=== PATIENT | male | born 1945 | race Caucasian/White ===

== ENCOUNTER 2018-08-19 15:35 | Outpatient (REF) | payer MEDICARE, BC, SELFPAY ==
[2018-08-19 20:20] LABS: ALT 65 U/L (12-78); Anion Gap 10.8 mmol/L (3-11); BUN 26 mg/dL (7-18); CO2 25.2 mmol/L (21.0-32.0); Calcium 9.4 mg/dL (8.5-10.1); Chloride 105 mmol/L (98-107); Estimated GFR 59.18 (mL/min/1.73m2); Glucose 96 mg/dL (70-100); Potassium 4.3 mmol/L (3.5-5.1); Sodium 141 mmol/L (136-145); Uric Acid 6.1 mg/dL (3.5-7.2)
[2018-08-19 20:32] LABS: LDL CHOLESTEROL 73 mg/dL (<100)
== END 2018-08-19 15:55 ==
LOC: NCHCN 15:35
PROVIDERS: PCP Internal Medicine; Visit Provider Internal Medicine
DX: E78.5 Hyperlipidemia, unspecified (principal); I10 Essential (primary) hypertension; M10.9 Gout, unspecified
CPT/HCPCS: 80048; 83721; 84460; 84550

== ENCOUNTER 2020-07-13 22:32 | Outpatient (REF) | payer MEDICARE, BC, SELFPAY ==
[2020-07-13 16:00] LABS: ALT 43 U/L (16-63); AST 23 U/L (15-37); Albumin 3.8 g/dL (3.4-5.0); Alkaline Phosphatase 54 U/L (46-116); Anion Gap 8.8 mmol/L (3-11); BUN 21 mg/dL (7-18); Bilirubin, Total 0.4 mg/dL (0.2-1.0); CO2 27.2 mmol/L (21.0-32.0); Calcium 9.1 mg/dL (8.5-10.1); Chloride 105 mmol/L (98-107); Glucose 110 mg/dL (74-106); LDL CHOLESTEROL 74 mg/dL (<100); Potassium 4.2 mmol/L (3.5-5.1); Sodium 141 mmol/L (136-145); Total Protein 6.8 g/dL (6.4-8.2)
== END 2020-07-13 22:33 | disposition home or self-care (01) ==
LOC: NCHCN 22:32
PROVIDERS: PCP Internal Medicine; Visit Provider Internal Medicine
DX: K76.0 Fatty (change of) liver, not elsewhere classified (principal); N40.0 Benign prostatic hyperplasia without lower urinary tract symptoms; Z87.11 Personal history of peptic ulcer disease
CPT/HCPCS: 80053; 83721

== ENCOUNTER 2020-11-02 14:32 | Outpatient (REF) | payer MEDICARE, BC, SELFPAY ==
[2020-11-05 13:34] LABS: COVID-19 RT-PCR UVMMC Result Positive (Negative)
== END 2020-11-02 14:33 | disposition home or self-care (01) ==
LOC: NCHCN 14:32
PROVIDERS: PCP Internal Medicine; Visit Provider Internal Medicine
DX: Z20.822 Contact with and (suspected) exposure to COVID-19 (principal)
CPT/HCPCS: U0003

== ENCOUNTER 2021-02-15 19:15 | Outpatient (REF) | payer MEDICARE, BC, SELFPAY | END 2021-02-15 19:16 | disposition home or self-care (01) | LOC: NCHCN 19:15 | PROVIDERS: PCP Internal Medicine; Visit Provider Internal Medicine | DX: N39.0 Urinary tract infection, site not specified (principal) | CPT/HCPCS: 87086 ==

== ENCOUNTER 2021-02-22 13:03 | Outpatient (REF) | payer MEDICARE, BC, SELFPAY ==
[2021-02-22 19:49] LABS: HCT 45.7 % (40.0-50.0); HGB 14.7 g/dL (13.5-17.5); MCH 30.1 pg (27.0-33.0); MCHC 32.2 % (32.0-36.0); MCV 93.6 fL (80-95); MPV 9.7 fL (8.0-11.0); Platelet Count 309 10^3/uL (130-400); RBC 4.88 10^6/uL (4.36-5.78); RDW 13.2 % (11.8-14.1); RDW-SD 45.1 fL; WBC 5.55 10^3/uL (4.4-10.8)
[2021-02-22 19:51] LABS: Anion Gap 9.7 mmol/L (3-11); BUN 25 mg/dL (7-18); CO2 26.3 mmol/L (21.0-32.0); CREATININE 1.2 mg/dL (0.70-1.30); Calcium 9.5 mg/dL (8.5-10.1); Chloride 102 mmol/L (98-107); Estimated GFR 58.86 (mL/min/1.73m2); Glucose 96 mg/dL (74-106); Potassium 4.8 mmol/L (3.5-5.1); Sodium 138 mmol/L (136-145)
[2021-02-22 20:03] LABS: Prothrombin Time 10.1 sec (9.3-11.0)
[2021-02-26 09:08] LABS: PSA, Screening 42.4 ng/mL (0.0-6.5)
== END 2021-02-22 13:04 | disposition home or self-care (01) ==
LOC: NCHCN 13:03
PROVIDERS: PCP Internal Medicine; Visit Provider Internal Medicine
DX: N32.0 Bladder-neck obstruction (principal); N39.0 Urinary tract infection, site not specified; N40.0 Benign prostatic hyperplasia without lower urinary tract symptoms; Z12.5 Encounter for screening for malignant neoplasm of prostate
CPT/HCPCS: 80048; 84153; 85027; 85610; 85730

== ENCOUNTER 2021-05-30 02:00 | Outpatient (CLI) | payer MEDICARE, BC, SELFPAY ==
--- NOTE | 2021-05-30 09:30 | DI.NM_ITS ---
Exam(s) NM BONE SCAN WHOLE BODY GRP EXAM: NM BONE SCAN WHOLE BODY GRP CLINICAL HISTORY: CARCINOMA OF PROSTATE, C61. COMPARISON: CT CT ABDOMEN PELVIS W from 05/30/2021 TECHNIQUE: Whole body bone scan was performed utilizing injection of 25.5 millicuries of technetium 99 labeled methylene diphosphonate. Additional planar imaging was obtained of the thoracic and cervi rogers regions. There are multiple areas of increased uptake seen in the thoracic and lumbar spine. These are fairly nonspecific and may at least in part be due to degenerative changes of the thoracic and lumbar spine which are present on today's abdominal and pelvic CT. However the possibility of metastatic disease is raised in appropriate follow-up studies are requested. Additionally, on planar views, there is some question of increased uptake in the cervical spine, breen deann whole-body images do not confirm this impression. FINDINGS: Indeterminate findings as described above, particularly involving multiple thoracic and lumbar areas of increased uptake. The findings are somewhat suspicious for metastatic disease in a patient with a history of prostate carcinoma. Additional evaluation with thoracic and lumbar spine MRI with and wi thout contrast administration may be considered if clinically appropriate. IMPRESSION: DATA REPOSITORY:
[2021-05-30 10:06] LABS: CREATININE 1.2 mg/dL (0.70-1.30); Estimated GFR 58.71 (mL/min/1.73m2)
--- NOTE | 2021-05-30 12:45 | DI.CT_ITS ---
Exam(s) CT ABDOMEN PELVIS W EXAM: CT ABDOMEN PELVIS W CLINICAL HISTORY: CARCINOMA OF PROSTATE, C61 TECHNIQUE: COMPARISON: No exams were available for comparison FINDINGS: CT examination of the abdomen and pelvis was performed with bolus infusion of 100 cc of Omnipaque 350 . Biphasic imaging was performed. Images obtained through the lung bases are unremarkable except for a 5 millimeter in diameter noncalc ified rounded left lower lobe intrapulmonary nodule, follow-up chest CT suggested in 6 months.. The liver appears normal with no evidence of a focal mass. Spleen is unremarkable in appearance.. Gallbladder and bile ducts are unremarkable. Pancreas is unremarkable in appearance. Adrenals appear normal bilaterally. The right kidney is unremarkable in appearance with no evidence of a mass, hydronephrosis, or nephrol ithiasis. There is a 7 millimeter in diameter nonobstructing calculus of the left renal pelvis. No hydronephro sis. No renal mass period the prostate is mildly interval enlarged and has an irregular contour with an apparent TURP defect of the base of the bladder. Urinary bladder otherwise grossly unremarkable. . There is no evidence of abdominal or pelvic adenopathy. Abdominal aorta is of normal diameter and no abnormality is seen involving major visceral branches.. Appendix is normal. No evidence diverticulitis or bowel obstruction. No significant abdominal wall hernia seen. Impression: No evidence of acute intra-abdominal process. Nonobstructing 7 millimeter left renal pelvic calculus noted. 5 millimeter left lower lobe noncalcified pulmonary nodule noted, indeterminate, metastatic disease n ot excluded although this is most likely a benign nodule, six-month follow-up CT recommended. RADIATION DOSE DELIVERED: 1,723.72mGy.cm Total DLP 1,723.72mGy.cm Total DLP !Error CTDIvol DATA REPOSITORY: All CT scans at this facility are submitted to the National Radiology Data Registry (NRDR) Dose Index Registry (DIR) with the [employer] (ACR). RADIATION OPTIMIZATION: All CT scans at this facility use at least one of these dose optimization te chniques: automated exposure control; mA and/or kV adjustment per patient size (includes targeted exa ms where dose is matched to clinical indication); or iterative reconstruction.
== END 2021-05-30 02:20 ==
PROVIDERS: PCP Internal Medicine; Visit Provider Urology
DX: C61 Malignant neoplasm of prostate (principal); N20.0 Calculus of kidney; R91.1 Solitary pulmonary nodule; R93.7 Abnormal findings on diagnostic imaging of other parts of musculoskeletal system
CPT/HCPCS: 78306; 74177; 82565

== ENCOUNTER 2021-06-20 01:29 | Outpatient (CLI) | payer MEDICARE, BC, SELFPAY ==
[2021-06-20] MEDS: Normal Saline Flush 10 ML SYR IVP (08:07)
[2021-06-20] MEDS: Gadoterate meglumine 20 ML VIAL IVP (08:08)
--- NOTE | 2021-06-20 09:50 | DI.MRI_ITS ---
Exam(s) MR THORACIC SPINE WO/W EXAM: MR THORACIC SPINE WO/W CLINICAL HISTORY: MALIGNANT NEOPLASM OF PROSTATE, C61. TECHNIQUE: Multiplanar multisequence MRI was performed. COMPARISON: [facility] BONE SCAN WHOLE BODY GRP from 05/30/2021 FINDINGS: MR examination of the thoracic spine was performed according to the usual protocol with additional pr e and post contrast T1 fat sat imaging. There are areas of poorly marginated mixed high and low signal seen in T8 and T9 vertebral bodies on the left posteriorly, as well as a focal 7 millimeter in diameter mixed signal focus in T5 vertebral body on the left anteriorly. These areas each show enhancement on post contrast imaging and are susp icious for bony metastatic disease in patient with known prostatic carcinoma. No gross compromise of the spinal canal or fracture identified. Spinal cord shows normal signal throughout. There are mul ti level prominent vertebral endplates and discs with no focal compressive lesion of the spinal cord. Neural foramina appear fairly well maintained as visualized. IMPRESSION: Findings raising the possibility of T5, T8, and T9 vertebral body metastatic lesions. Follow-up MRI recommended in 6 months. DATA REPOSITORY:
--- NOTE | 2021-06-20 09:50 | DI.MRI_ITS ---
Exam(s) MR LUMBAR SPINE WO/W EXAM: MR LUMBAR SPINE WO/W CLINICAL HISTORY: MALIGNANT NEOPLASM OF PROSTATE, C61. TECHNIQUE: Multiplanar multisequence MRI was performed. COMPARISON: CT CT ABDOMEN PELVIS W from 05/30/2021 FINDINGS: MR examination of the lumbosacral spine was performed according to the usual protocol with additional pre and post contrast T1 fat sat imaging. There are Anna discal vertebral signal changes multiple levels and some small fatty rests or vertebra l hemangiomas are noted. No suspicious destructive or low signal lesion is identified in the lumbar region to suggest metastatic disease. There is multi level degenerative end plate and facet change throughout the lumbar region. No significant findings at T12-L1 or L1-2. At L2-3 there is moderate central canal spinal stenosis. At L3-4, there is moderate central canal spinal stenosis. At L4-5 there is moderate central canal spinal stenosis. No disc herniation identified in the lumbar region. There is slight symmetrical narrowing of neural foramina bilaterally throughout the lumbar region wit hout focal moderate or high-grade stenosis. IMPRESSION: No evidence of bony metastatic disease. Multilevel moderate central canal spinal stenosis. DATA REPOSITORY:
== END 2021-06-20 01:49 ==
PROVIDERS: PCP Internal Medicine; Visit Provider Urology
DX: C61 Malignant neoplasm of prostate (principal); M84.88 Other disorders of continuity of bone, other site; M48.061 Spinal stenosis, lumbar region without neurogenic claudication
CPT/HCPCS: 72158; 72157

== ENCOUNTER 2022-01-30 15:38 | Outpatient (REF) | payer MEDICARE, BC, SELFPAY ==
[2022-01-30 20:25] LABS: Anion Gap 8.8 mmol/L (3-11); BUN 40 mg/dL (7-18); CO2 26.2 mmol/L (21.0-32.0); CREATININE 1.2 mg/dL (0.70-1.30); Calcium 9.4 mg/dL (8.5-10.1); Chloride 101 mmol/L (98-107); Estimated GFR 62.29 (mL/min/1.73m2); Glucose 120 mg/dL (74-106); Potassium 3.7 mmol/L (3.5-5.1); Sodium 136 mmol/L (136-145)
== END 2022-01-30 15:39 | disposition home or self-care (01) ==
LOC: NCHCN 15:38
PROVIDERS: PCP Internal Medicine; Visit Provider Internal Medicine
DX: I10 Essential (primary) hypertension (principal)
CPT/HCPCS: 80048

== ENCOUNTER 2022-02-12 12:14 | Outpatient (CLI) | payer MEDICARE, BC, SELFPAY ==
[2022-02-12 11:06] LABS: Abs Immature Grans 0.06 10^3/uL (0.0-0.06); Absolute Basophil Count 0.02 10^3/uL (0.0-0.2); Absolute Eosinophil Count 0.05 10^3/uL (0.0-0.7); Absolute Lymphocyte Count 0.32 10^3/uL (1.2-3.4); Absolute Monocyte Count 0.89 10^3/uL (0.1-0.8); Absolute Neutrophil Count 8.17 10^3/uL (1.2-6.7); Basophils % 0.2; Eosinophils % 0.5; HCT 36.4 % (40.0-50.0); Immature Grans % 0.6; Lymphocytes % 3.4; MCH 31.2 pg (27.0-33.0); MCV 95 fL (80-95); MPV 9.1 fL (8.0-11.0); Monocytes % 9.4; Neutrophils % 85.9; Platelet Count 253 10^3/uL (130-400); RBC 3.85 10^6/uL (4.36-5.78); RDW 14.2 % (11.8-14.1); RDW-SD 49.4 fL; WBC 9.51 10^3/uL (4.4-10.8)
[2022-02-12 11:46] LABS: ALT 26 U/L (16-63); AST 17 U/L (15-37); Albumin 3.2 g/dL (3.4-5.0); Alkaline Phosphatase 52 U/L (46-116); Anion Gap 10.3 mmol/L (3-11); BUN 29 mg/dL (7-18); Bilirubin, Total 0.4 mg/dL (0.2-1.0); CO2 23.7 mmol/L (21.0-32.0); Calcium 8.9 mg/dL (8.5-10.1); Chloride 101 mmol/L (98-107); Estimated GFR 77.52 (mL/min/1.73m2); Glucose 117 mg/dL (74-106); Potassium 3.9 mmol/L (3.5-5.1); Sodium 135 mmol/L (136-145); Total Protein 7.1 g/dL (6.4-8.2)
--- OUTSIDE RECORDS SUMMARY | 2022-02-12 12:19 | XMS_ITS | Continuity of Care Document ---
:[address] [facility] Address [address] [place] [address] Care Team Providers Name Role Phone Primeau EMMYPedro Luis Primary Care Physician [phone] Encounter [facility] [id number] Date(s): 01/01/22 - 01/01/22 [facility] [address] [place] [address] Discharge Disposition: Home or Self Care Attending Physician: Sung Jones MD Admitting Physician: Sung Jones MD Referring Physician: Sung Jones MD Allergies, Adverse Reactions, Alerts No Known Medication Allergies Assessment and Plan Future AppointmentsDiagnostic Tests PendingPSA Ultrasensitive, S CORDERO 01/01/22 Results Laboratory List Name Date CBC w/ Diff 01/01/22 Comprehensive Metabolic Panel 01/01/22 Testosterone [facility] 01/01/22 .Manual Differential ([facility]) 01/01/22 Most recent to oldest [Reference Range]: 1 WBC [5.0-10.0 x10^3/mcL] 8.4 x10^3/mcL (01/01/22 8:45 AM) RBC [4.6-6.0 x10^6/mcL] 4.2 x10^6/mcL *LOW* (01/01/22 8:45 AM) Segs Man [40-75 %] 86 % *HI* (01/01/22 8:45 AM) Lymph Man [20-50 %] 10 % *LOW* (01/01/22 8:45 AM) Parker Man 2 % *NA* (01/01/22 8:45 AM) Eos Man 1 % *NA* (01/01/22 8:45 AM) BUN [7-18 mg/dL] 25 mg/dL *HI* (01/01/22 8:45 AM) Glucose Level [74-106 mg/dL] 109 mg/dL *HI* (01/01/22 8:45 AM) Potassium Level [3.5-5.1 mmol/L] 3.9 mmol/L (01/01/22 8:45 AM) MCV [80.0-103.0 fL] 96.2 fL (01/01/22 8:45 AM) RBC Morph Normal (01/01/22 8:45 AM) AST [15-37 unit/L] 16 unit/L (01/01/22 8:45 AM) ALT [16-63 unit/L] 27 unit/L (01/01/22 8:45 AM) MCHC [31.0-35.0 g/dL] 33.3 g/dL (01/01/22 8:45 AM) Sodium Level [136-145 mmol/L] 137 mmol/L (01/01/22 8:45 AM) Hct [41.0-51.0 %] 40.3 % *LOW* (01/01/22 8:45 AM) Calcium Level [8.5-10.1 mg/dL] 9.0 mg/dL (01/01/22 8:45 AM) Albumin Level [3.4-5.0 g/dL] 3.5 g/dL (01/01/22 8:45 AM) Protein Total [6.4-8.2 g/dL] 7.1 g/dL (01/01/22 8:45 AM) MCH [26.0-32.0 pg] 32.0 pg (01/01/22 8:45 AM) Bilirubin Total [0.2-1.0 mg/dL] 0.4 mg/dL (01/01/22 8:45 AM) Hgb [14.0-18.0 g/dL] 13.4 g/dL *LOW* (01/01/22 8:45 AM) Alk Phos [46-146 unit/L] 54 unit/L (01/01/22 8:45 AM) Band Man [0-5 %] 0 % (01/01/22 8:45 AM) Platelets [130-450 x10^3/mcL] 296 x10^3/mcL (01/01/22 8:45 AM) CO2 [21-32 mmol/L] 28 mmol/L (01/01/22 8:45 AM) eGFR Non-AA [>=60] 76 (01/01/22 8:45 AM) eGFR AA [>=60] 76 (01/01/22 8:45 AM) Chloride Level [98-107 mmol/L] 103 mmol/L (01/01/22 8:45 AM) RDW-CV [11.5-17.0 %] 13.1 % (01/01/22 8:45 AM) Creatinine Level [0.70-1.30 mg/dL] 1.02 mg/dL (01/01/22 8:45 AM) Testosterone [facility] [229-902 ng/dL] <7 ng/dL 1 *LOW* (01/01/22 8:45 AM) Baso Man [0-1 %] 1 % (01/01/22 8:45 AM) 1Result Comment: The results of this assay can be falsely elevated due to the consumption of Biotin. [place] [address] Social History Social History Type Response Sex Male Patient Care team information PersonnelName: Pedro Luis Hairston MD Address: Address: [facility] [address] [place], [place] [id number] [place] [address]
--- OUTSIDE RECORDS SUMMARY | 2022-02-12 12:19 | XMS_ITS | Continuity of Care Document ---
:1945 Author Organization [facility] Address [address] [place] [address] Care Team Providers Name Role Phone Primeau Pedro Luis GREGG Primary Care Physician [phone] Encounter [facility] [id number] Date(s): 12/04/21 - 12/04/[address] [address] Discharge Disposition: Home or Self Care Attending Physician: Sung Jones MD Admitting Physician: Sung Jones MD Referring Physician: Sung Jones MD Allergies, Adverse Reactions, Alerts No Known Medication Allergies Assessment and Plan Future AppointmentsDiagnostic Tests PendingPSA Ultrasensitive, S CORDERO 12/04/21 Results Laboratory List Name Date CBC w/ Diff 12/04/21 Comprehensive Metabolic Panel 12/04/21 Testosterone, Total and Free [facility] 12/04/21 Automated Diff 12/04/21 Most recent to oldest [Reference Range]: 1 WBC [5.0-10.0 x10^3/mcL] 8.2 x10^3/mcL (12/04/21 9:40 AM) RBC [4.6-6.0 x10^6/mcL] 4.4 x10^6/mcL *LOW* (12/04/21 9:40 AM) Neutro Auto [40.0-75.0 %] 76.5 % *HI* (12/04/21 9:40 AM) Lymph Auto [20.0-50.0 %] 13.6 % *LOW* (12/04/21 9:40 AM) Mcculloch Auto [2.0-15.0 %] 6.5 % (12/04/21 9:40 AM) Basophil Auto [0.0-1.0 %] 0.7 % (12/04/21 9:40 AM) BUN [7-18 mg/dL] 27 mg/dL *HI* (12/04/21 9:40 AM) Glucose Level [74-106 mg/dL] 107 mg/dL *HI* (12/04/21 9:40 AM) Potassium Level [3.5-5.1 mmol/L] 4.0 mmol/L (12/04/21 9:40 AM) MCV [80.0-103.0 fL] 95.0 fL (12/04/21:40 AM) AST [15-37 unit/L] 19 unit/L (12/04/21 9:40 AM) ALT [14-59 unit/L] 33 unit/L (12/04/21:40 AM) MCHC [31.0-35.0 g/dL] 33.7 g/dL (12/04/21:40 AM) Sodium Level [136-145 mmol/L] 138 mmol/L (12/04/21:40 AM) Hct [41.0-51.0 %] 41.9 % (12/04/21:40 AM) Calcium Level [8.5-10.1 mg/dL] 9.2 mg/dL (12/04/21:40 AM) Albumin Level [3.4-5.0 g/dL] 3.9 g/dL (12/04/21:40 AM) Protein Total [6.4-8.2 g/dL] 7.5 g/dL (12/04/21 9:40 AM) MCH [26.0-32.0 pg] 32.0 pg (12/04/21 9:40 AM) Neutro Absolute 6.2 x10^3/mcL *NA* (12/04/21 9:40 AM) Bilirubin Total [0.2-1.0 mg/dL] 0.5 mg/dL (12/04/21 9:40 AM) Hgb [14.0-18.0 g/dL] 14.1 g/dL (12/04/21 9:40 AM) Alk Phos [46-146 unit/L] 56 unit/L (12/04/21 9:40 AM) Platelets [130-450 x10^3/mcL] 263 x10^3/mcL (12/04/21 9:40 AM) CO2 [21-32 mmol/L] 27 mmol/L (12/04/21 9:40 AM) eGFR Non-AA [>=60] 80 (12/04/21 9:40 AM) eGFR AA [>=60] 80 (12/04/21 9:40 AM) Chloride Level [98-107 mmol/L] 103 mmol/L (12/04/21 9:40 AM) RDW-CV [11.5-17.0 %] 13.2 % (12/04/21 9:40 AM) Imm Gran Auto [0.0-0.9 %] 1.2 % *HI* (12/04/21 9:40 AM) Creatinine Level [0.70-1.30 mg/dL] 0.97 mg/dL (12/04/21 9:40 AM) Testosterone [facility] [229-902 ng/dL] <7 ng/dL 1 *LOW* (12/04/21 9:40 AM) Sex Hormone Bnd Glob [facility] [17.3-71.5 nmol/L] 57.1 nmol/ L 2 *NA* (12/04/21 9:40 AM) Free Testosterone [facility] [2.9-10.1 ng/dL] <0.1 ng/dL 3 *LOW* (12/04/21 9:40 AM) Anion Gap [8-16 mmol/L] 8 mmol/L (12/04/21 9:40 AM) Eos, Auto [1.0-6.0 %] 1.5 % (12/04/21 9:40 AM) 1Result Comment: The results of this assay can be falsley elevated due to the consumption of Biotin.2Result Comment: The results of this assay can be falsely lowered due to the consumption of Biotin.3Result Comment: This test is not recommended in patients with plasma protein abnormalities. Test performed or referred by The [address] [address] Social History Social History Type Response Sex Male Patient Care team information PersonnelName: Pedro Luis Hairston MD Address: Address: [address]
[2022-02-18 12:32] LABS: Testosterone, Total <7.0 ng/dL (240-950)
== END 2022-02-12 12:15 | disposition home or self-care (01) ==
LOC: LBO 12:16
PROVIDERS: PCP Internal Medicine; Visit Provider Internal Medicine
DX: C61 Malignant neoplasm of prostate (principal); C77.5 Secondary and unspecified malignant neoplasm of intrapelvic lymph nodes
CPT/HCPCS: 36415; 80053; 84153; 84403; 85025

== ENCOUNTER 2022-03-22 20:23 | Outpatient (REF) | payer MEDICARE, BC, SELFPAY ==
[2022-03-22 20:06] LABS: Hemoglobin A1C 5.7 % (<5.7)
[2022-03-22 20:30] LABS: TSH 1.15 uIU/mL (0.36-3.74); Vitamin B12 394 pg/mL (193-986)
[2022-03-26 12:57] LABS: Albumin 57.5 % (55.8-66.1); Albumin g/dL 3.9 g/dL (3.6-5.2); Total Protein 6.8 g/dL (6.3-8.2)
== END 2022-03-22 20:24 | disposition home or self-care (01) ==
LOC: NCHCN 20:23
PROVIDERS: PCP Internal Medicine; Visit Provider Internal Medicine
DX: G60.9 Hereditary and idiopathic neuropathy, unspecified (principal); R79.89 Other specified abnormal findings of blood chemistry
CPT/HCPCS: 82607; 83036; 84165; 84443

== ENCOUNTER 2022-03-28 11:58 | Outpatient (REF) | payer MEDICARE, BC, SELFPAY | END 2022-03-28 11:59 | disposition home or self-care (01) | LOC: NCHCN 11:58 | PROVIDERS: PCP Internal Medicine; Visit Provider Nurse Practitioner Family | DX: R30.0 Dysuria (principal) | CPT/HCPCS: 87077; 87086; 87186 ==

== ENCOUNTER → 2022-11-05 12:23 | Outpatient (BNVA) | payer MEDICARE, BC, SELFPAY | PROVIDERS: PCP Internal Medicine; Referring Provider Internal Medicine; Visit Provider Psychiatry & Neurology Neurology | DX: R26.89 Other abnormalities of gait and mobility (principal); R29.6 Repeated falls | CPT/HCPCS: 99205 ==

== ENCOUNTER → 2022-12-03 00:07 | Outpatient (CLI) | payer MEDICARE, BC, SELFPAY ==
--- NOTE | 2022-12-03 07:15 | DI.MRI_ITS ---
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 TECHNIQUE: Multiplanar multisequence MRI of the Lumbar spine was performed. COMPARISON: NM NM BONE SCAN WHOLE BODY GRP from 05/30/2021 MR MR LUMBAR SPINE WO/W from 06/20/2021 FINDINGS: Bones: The last intervertebral disc space is designated the L5/S1 level for the numbering purpose of this ex amination. The vertebral body heights are well maintained. Alignment: Degenerative scoliosis. Marrow: Degenerative signal changes in the endplates. Findings consistent with a hemangioma in T12. No change in tiny high signal lesion in the T10 vertebral body. Cord: The conus tip ends at the T12 level. It is of normal size and signal intensity. T12-L1: No focal disc herniation is present. No central spinal canal stenosis.No neural foraminal st enosis. L1-2:Loss of disc height and endplate osteophytes eccentric toward the left causing severe left neura l foraminal narrowing. [id number] central canal stenosis. No focal disc herniation is present . L2-3: Arm marked loss of disc height and broad-based endplate osteophytes. Severe left neural forami nal narrowing. No no focal disc herniation is present. No central spinal canal stenosis.No neural foraminal stenosis. L3-4: loss of disc height and endplate osteophytes eccentric toward the right. Superimposed right p aracentral disc protrusion. Facet degenerative changes. Severe central canal stenosis. Severe righ t and moderate left neural foraminal narrowing. L4-5:Broad-based disc bulging eccentric toward the right. Facet degenerative changes and ligamentous hypertrophy. Moderate central canal stenosis. Mild to moderate right neural foraminal narrowing. No focal disc herniation is present. No central spinal canal stenosis. L5-S1: Loss of disc height. Small endplate osteophytes. Mild facet degenerative changes. Moderate to severe bilateral neural foraminal narrowing. No focal disc herniation is present. No central spi nal canal stenosis. The visualized SI joints and sacrum are well maintained. Soft tissues: The paraspinal soft tissues are unremarkable. IMPRESSION: Severe central canal stenosis secondary to a combination degenerative changes and right paracentral d isc protrusion. Moderate central canal stenosis at L4-5. Multilevel bilateral neural foraminal narrowing secondary to combination of degenerative disc changes and facet degenerative changes. DATA REPOSITORY:
--- NOTE | 2022-12-03 07:15 | DI.MRI_ITS ---
Exam(s) MR CERVICAL SPINE WO EXAM: MR CERVICAL SPINE WO CLINICAL HISTORY: ?myelopathy,balance problem,post column ataxia,r26.89,g11.8 TECHNIQUE: Multiplanar multisequence MRI of the cervical spine was performed without intravenous con trast. COMPARISON: [facility] BONE SCAN WHOLE BODY GRP from 05/30/2021 FINDINGS: BONES: Vertebral body heights are maintained. Alignment is normal. Marrow signal shows degenerative s ignal changes in the endplates. No suspicious lesions are identified.. CERVICAL CORD: Craniovertebral junction is unremarkable. The cervical cord is normal size and signal intensity. SOFT TISSUES: Unremarkable. C1-2: Degenerative changes atlantoaxial joint. C2-3: No disc herniation or bulge is identified. No evidence of neural foraminal narrowing. No signi ficant central canal stenosis. C3-4: No disc herniation or bulge is identified. No evidence of neural foraminal narrowing. No signif icant central canal stenosis. C4-5: Minimal disc bulging. Facet degenerative changes greater on the right causes neural foraminal encroachment. No leftneural foraminal narrowing. No significant central canal stenosis. C5-6: Moderate to severe loss of disc height. Broad-based disc osteophytes. Facet degenerative matos ges.Bilateral neural foraminal narrowing. Mild central canal stenosis. C6-7: Moderate to severe loss of disc height. Broad-based disc osteophytes. Facet degenerative maots ges. Mild bilateral neural foraminal narrowing. [id number] central canal stenosis. C7-T1: Moderate to severe loss of disc height. Small endplate osteophytes. Right neural foraminal n arrowing. No significant central canal stenosis. T1-2: Normal disc height. No significant disc bulging. Facet degenerative changes cause bilateral n eural foraminal encroachment. No significant central canal stenosis. IMPRESSION: Multilevel degenerative changes. Findings greatest at C6-7 where there is central canal stenosis and . Multilevel bilateral neural foraminal narrowing. DATA REPOSITORY:
== END ==
PROVIDERS: PCP Internal Medicine; Visit Provider Psychiatry & Neurology Neurology
DX: M48.061 Spinal stenosis, lumbar region without neurogenic claudication (principal); M99.63 Osseous and subluxation stenosis of intervertebral foramina of lumbar region; M99.61 Osseous and subluxation stenosis of intervertebral foramina of cervical region
CPT/HCPCS: 72141; 72148

== ENCOUNTER → 2023-01-07 09:40 | Outpatient (BNVA) | payer MEDICARE, BC, SELFPAY | PROVIDERS: PCP Internal Medicine; Referring Provider Internal Medicine; Visit Provider Psychiatry & Neurology Neurology | DX: G11.8 Other hereditary ataxias (principal); M48.061 Spinal stenosis, lumbar region without neurogenic claudication; I10 Essential (primary) hypertension | CPT/HCPCS: 99214 ==

== ENCOUNTER 2023-01-21 15:24 | Outpatient (CLI) | payer MEDICARE, BC, SELFPAY ==
[2023-01-24 18:57] LABS: PSA, Ultrasensitive <0.01 ng/mL (<= 6.5)
[2023-01-26 16:51] LABS: Testosterone, Total <7.0 ng/dL (240-950)
== END 2023-01-21 15:25 | disposition home or self-care (01) ==
LOC: LBO 15:24
PROVIDERS: PCP Internal Medicine; Visit Provider Nurse Practitioner Family
DX: C61 Malignant neoplasm of prostate (principal); C77.5 Secondary and unspecified malignant neoplasm of intrapelvic lymph nodes
CPT/HCPCS: 36415; 84153; 84403

== ENCOUNTER → 2023-02-28 01:39 | Outpatient (CLI) | payer MEDICARE, BC, SELFPAY ==
--- NOTE | 2023-02-28 | DI.MRI_ITS ---
Exam(s) MR THORACIC SPINE WO EXAM: MR THORACIC SPINE WO CLINICAL HISTORY: LUMBAR DISC DISEASE, LUMBAR/THORACIC STENOSIS, NUMBNESS/TINGLING BOTH FEET TECHNIQUE: Multiplanar multisequence MRI of the thoracic spine was performed without intravenous con trast. COMPARISON: MR MR THORACIC SPINE WO/W from 06/20/2021 FINDINGS: OSSEOUS: There are no acute nor chronic appearing thoracic vertebral fractures. There is a small brady gn intraosseous hemangioma in the T12 vertebral body. The anterior aspect of T5 vertebral body an th ere is a focus of signal abnormality slightly left of center which does not exhibit signal characteri stics typical of hemangioma. There is another larger bone lesion in the posterior none left-side of T9 vertebral body which also does not exhibit signal characteristics typical of a hemangioma.. Also another smaller focus of signal abnormality in the anterior aspect of T10 vertebral body which is pro bably a small hemangioma. THORACIC SPINAL CORD: There is no abnormal signal in the cervical spinal cord and no evidence of foca l cord atrophy nor focal cord swelling. There is no evidence of syringomyelia nor significant spinal cord dysraphism. There is no evidence of mass at the conus medullaris. The position of the conus me dullaris is at T12-L1 level. There is mild reversal of the normal curvature in the lower thoracic spine probably related to chroni c muscle spasm. SIGNIFICANT INDIVIDUAL LEVEL FINDINGS: T6-T7: Small right paracentral disc protrusion which slightly indents the thecal sac but not the spin al cord. There is no significant central canal stenosis at this level. No foraminal stenosis. Face ts unremarkable. T7-T8: Chronic disc space narrowing. Modic type 2 sub endplate marrow fatty changes are evident at t his level. There is a central posterior disc herniation at this level which extends posteriorly 3.5 mm and is approximately 9 mm wide. This significantly indents the anterior thecal sac and contacts b ut does not significantly indent the anterior aspect of the spinal cord at this level. There is no a bnormal signal in the cord at this level. Central osseous canal dimensions are the decreased. There is no significant foraminal stenosis at this level. Facet joints unremarkable. T8-T9: Chronic disc space narrowing. Mild Modic type 2 sub endplate marrow fatty changes. Small maricarmen tral subligamentous disc bulge. Central canal dimensions are normal. No significant foraminal steno sis. No facet arthropathy. T9-T10: Moderate disc space narrowing. Posterior annular bulging which slightly indents the thecal s ac but not the spinal cord. Central canal dimensions are lower normal. No significant foraminal vicky nosis on the left side. Mild foraminal stenosis on the right side at this level due to slightly asym metric disc height loss. T10-T11: Mild disc space narrowing. Very mild anterolisthesis of T10 upon T11 due to facet joint deg enerative changes. Asymmetric annular bulging on the left side posterolateral left and extending int o the floor of the exiting left neural foramen, extending posteriorly 2-3 millimeters. There is sign ificant central spinal canal stenosis at this level. AP canal measurement is 7 mm. Compounded by de generative change in the facet joints. This indents the thecal sac posteriorly as does the annular b ulging anteriorly. There is mild impingement upon the spinal cord at this level. There is also a sm all hyperintense focus posterolateral right this level which appears to be a probable small degenerat david synovial cyst off the right facet joint, this best seen on the sagittal T2 sequences. There is m ild foraminal stenosis on the left side at this level. No foraminal stenosis on the right side. T11-T12: Unremarkable. No disc herniation. No central canal stenosis. No significant foraminal vicky nosis. T12-L1: Mild annular bulging but no prominent disc herniation or central canal stenosis. No foramina l stenosis. PARASPINAL TISSUES: No significant masses nor fluid collections evident. IMPRESSION: 1. Multilevel degenerative disc disease with the most significant findings detailed above. The most significant spinal canal stenosis is at the T10-T11 level (see above). 2. There is no abnormal signal in the thoracic spinal cord. No focal cord swelling nor focal cord ed zonia. No evidence of spinal cord dysraphism and no syringomyelia evident. 3. Multiple bone lesions seen in the vertebral bodies as described above, some of which are typical h emangiomas but others which do not exhibit signal characteristics typical of benign intraosseous tania ngioma. This is most evident in the posterior left side of the T9 vertebral body. Recommend further imaging with CT scan through these regions to determine if there is a typical chordoroy trabecular p attern of intraosseous hemangioma at these levels, with special attention to T9 and T5 vertebral bodi es. DATA REPOSITORY:
== END ==
PROVIDERS: PCP Internal Medicine; Visit Provider Physician Assistant Medical
DX: M51.24 Other intervertebral disc displacement, thoracic region (principal)
CPT/HCPCS: 72146

== ENCOUNTER 2023-10-30 11:22 | Outpatient (CLI) | payer MEDICARE, BC, SELFPAY ==
[2023-10-30 11:30] VITALS: BP 164/85; PULSE 64; RESP 20; TEMP 36.6; O2SAT 95
[2023-10-30 11:50] VITALS: PULSE 69; O2SAT 97
[2023-10-30 12:00] VITALS: PULSE 65; RESP 15; O2SAT 97
[2023-10-30 12:07] VITALS: BP 165/100; PULSE 65; PULSE 67; RESP 22; O2SAT 95
[2023-10-30 12:10] VITALS: BP 148/94; PULSE 72
--- NOTE | 2023-10-30 12:11 | DI.RAD_ITS ---
Exam(s) XR PAIN CLINIC LUMBAR SP 2V EXAM: XR PAIN CLINIC LUMBAR SP 2V CLINICAL HISTORY: DX: Lumbar Spondylosis. TECHNIQUE: Fluoroscopy was provided for the referring physician for guidance with performing pain cl inic injection procedure. COMPARISON: No exams were available for comparison FINDINGS: Please see procedure note for details. Fluoro time: 75.4 seconds RADIATION DOSE DELIVERED: kathie Katz=29.32 mGy
[2023-10-30] MEDS: Omnipaque 240 MG/ML 50 ML BTL IJ (12:13)
[2023-10-30] MEDS: Bupivacaine 0.5% Pres-Free 10 ML VIAL IJ (12:14)
[2023-10-30] MEDS: Nerve Block Tray 1 EACH MC (12:14)
--- NOTE | 2023-10-31 10:56 | PDOC.PAIN ---
Date of service: 10/30/23 Time of Service: 12:00 [facility] Procedure Note Procedure Note Procedure Note: PROCEDURE NOTE Bilateral Lumbar Medial Branch Blocks #1 Date of Service: October 30, 2023 Patient: Keron Busch Provider: Micah Spears DO, MPH Keronkatherine Busch has been [facility] for lumbar medial branch blocks. 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 No significant changes. Keron? was interviewed and the medical records were reviewed. There were no medical, pharmacologic, radiographic or other structural contraindications to attempting fluoroscopically guided local anesthetic lumbar medial branch blocks. Risks and potential side effects were discussed. I also discussed the potential benefit(s) of the procedure with Keron, and voiced concerns were addressed. After Keron was completely informed about the procedure, the printed consent form was signed. A standard time-out procedure was performed. Keron was placed in the prone position on the fluoroscopy table. Automated blood pressure cuff and pulse oximeter were applied. The skin entry points for approaching the anatomic target points of the segmental medial branches of bilateral L3,L4,L5 were identified with fluoroscopy and marked. The skin at the target site area was thoroughly prepared with Chlorhexadine. The skin was then draped. Next, a 25 gauge 3.5 spinal needle was placed under fluoroscopic guidance down on to the target point (the articular pillar) for each respective segmental medial branch. Position was confirmed in A/P and lateral views. Aspiration revealed no blood or clear fluid. Next, 0.25ml of omnipaque 240 was injected at each level. No contrast following a vascular or neural pattern was visualized under continuous fluoroscopy. Next, 0.25 ml of preservative-free 0.5% bupivicaine was injected at each level. There was no unusual discomfort expressed by Keron. The needles were withdrawn without difficulty. (49 mls of Omnipaque was wasted) Keron was observed and was without hemodynamic, neurologic, or allergic reactions.? Fluoroscopic images were digitally archived. Provacative testing using the Modified Austin's facet loading test- Left side Right Side Directly before the block VAS (0-10) = 6/10 VAS (0-10) = 6/10 Five minutes after the block VAS (0-10) = 2/10 VAS (0-10) = 2/10 Percentage relief obtained with this diagnostic block 80% 80% Any improved physical functioning directly after the blocks? Able to move his back in all directions with minimal pain. Follow up plans and appointments were discussed with Keron. Keron was instructed to keep careful note of how the usual pain was modified by these injections. Specifically, to keep a pain diary for the next 4 hours using a numeric pain scale of 0-10 and report these results. Post procedure instruction was given as documented in the nursing documentation and having met discharge criteria, the patient was [facility]. Based on the medial branches blocked today, if they patient has adequate relief and we are able to proceed to radiofrequency ablation, the treatment should result in the denervation of the bilateral L4-L5 and L5-S1 facet joints. We would expect to denervate a total of 4 facets during the radiofrequency ablation. COMMENTS: No apparent complications. Post-procedure pain: VAS= 2/10 Keron will call back with 0-4 hour post-procedure pain scores. I personally performed the entire procedure. MICAH SPEARS DO, MPH ABPM&R-subspecialty board certification in Pain Medicine [facility]
== END 2023-10-30 11:23 | disposition home or self-care (01) ==
LOC: PC 11:22
PROVIDERS: PCP Internal Medicine; Visit Provider Preventive Medicine Occupational Medicine
DX: M47.816 Spondylosis without myelopathy or radiculopathy, lumbar region (principal); M54.50 Low back pain, unspecified
CPT/HCPCS: 64493; 64494; 72100; J0665; Q9967

== ENCOUNTER 2023-11-14 10:37 | Outpatient (CLI) | payer MEDICARE, BC, SELFPAY ==
[2023-11-14] VITALS (10 sets, daily range): BP systolic 147–192; BP diastolic 66–101; PULSE 59–64; RESP 15–19; TEMP 36.9; O2SAT 96–98
--- NOTE | 2023-11-14 11:55 | DI.RAD_ITS ---
Exam(s) XR PAIN CLINIC LUMBAR SP 2V EXAM: XR PAIN CLINIC LUMBAR SP 2V CLINICAL HISTORY: DX: Lumbar spondylosis. TECHNIQUE: Fluoroscopy was provided for the referring physician for guidance with performing pain cl inic injection procedure. COMPARISON: No exams were available for comparison FINDINGS: Please see procedure note for details. Fluoro time: 57.9 seconds RADIATION DOSE DELIVERED: Sterlingr=22.2 mGy
[2023-11-14] MEDS: Nerve Block Tray 1 EACH MC (12:00)
[2023-11-14] MEDS: Bupivacaine 0.5% Pres-Free 10 ML VIAL IJ (12:01)
[2023-11-14] MEDS: Omnipaque 240 MG/ML 50 ML BTL IJ (12:01)
--- NOTE | 2023-11-14 12:45 | PDOC.PAIN ---
Date of service: 11/14/23 Time of Service: 12:45 Pain Managment Procedure Note Procedure Note Procedure Note: PROCEDURE NOTE Bilateral Lumbar Medial Branch Blocks Date of Service: November 14, 2023 Patient: Keron Busch Provider: Corbin pSears DO, MPH Keron Neha Busch has been referred to the [facility] for lumbar medial branch blocks. 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 Keron? was interviewed and the medical records were reviewed. There were no medical, pharmacologic, radiographic or other structural contraindications to attempting fluoroscopically guided local anesthetic lumbar medial branch blocks. Risks and potential side effects were discussed. I also discussed the potential benefit(s) of the procedure with Keron, and voiced concerns were addressed. After Keron was completely informed about the procedure, the printed consent form was signed. A standard time-out procedure was performed. Keron was placed in the prone position on the fluoroscopy table. Automated blood pressure cuff and pulse oximeter were applied. The skin entry points for approaching the anatomic target points of the segmental medial branches of bilateral L3,L4,L5 were identified with fluoroscopy and marked. The skin at the target site area was thoroughly prepared with Chlorhexadine. The skin was then draped. Next, a 25 gauge 3.5 spinal needle was placed under fluoroscopic guidance down on to the target point (the articular pillar) for each respective segmental medial branch. Position was confirmed in A/P and lateral views. Aspiration revealed no blood or clear fluid. Next, 0.25ml of omnipaque 240 was injected at each level. No contrast following a vascular or neural pattern was visualized under continuous fluoroscopy. Next, 0.25 ml of preservative-free 0.5% bupivicaine was injected at each level. There was no unusual discomfort expressed by Keron. The needles were withdrawn without difficulty. (49 mls of Omnipaque was wasted) Keron was observed and was without hemodynamic, neurologic, or allergic reactions.? Fluoroscopic images were digitally archived. Provacative testing using the Modified Austin's facet loading test- Left side Right Side Directly before the block VAS (0-10) = 6/10 VAS (0-10) = 6/10 Five minutes after the block VAS (0-10) = 0/10 VAS (0-10) = 0/10 Percentage relief obtained with this diagnostic block 100% 100% Any improved physical functioning directly after the blocks? Able to extend, flex and twist his back without pain. Follow up plans and appointments were discussed with Keron. Keron was instructed to keep careful note of how the usual pain was modified by these injections. Specifically, to keep a pain diary for the next 4 hours using a numeric pain scale of 0-10 and report these results. Post procedure instruction was given as documented in the nursing documentation and having met discharge criteria, the patient was [facility] from the [facility]. Based on the medial branches blocked today, if they patient has adequate relief and we are able to proceed to radiofrequency ablation, the treatment should result in the denervation of the bilateral L4-L5 and L5-S1 facet joints. We would expect to denervate a total of 4 facets during the radiofrequency ablation. COMMENTS: No apparent complications. Post-procedure pain: VAS= 0/10 Keron will call back with 0-4 hour post-procedure pain scores. I personally performed the entire procedure. CORBIN SPEARS DO, MPH ABPM&R-subspecialty board certification in Pain Medicine [facility]
== END 2023-11-14 10:38 | disposition home or self-care (01) ==
LOC: PC 10:37
PROVIDERS: PCP Internal Medicine; Visit Provider Preventive Medicine Occupational Medicine
DX: M54.50 Low back pain, unspecified (principal); M47.816 Spondylosis without myelopathy or radiculopathy, lumbar region
CPT/HCPCS: 64493; 64494; 72100; J0665; Q9967

== ENCOUNTER 2023-12-24 12:20 | Outpatient (CLI) | payer MEDICARE, BC, SELFPAY ==
[2023-12-24] VITALS (9 sets, daily range): BP systolic 135–180; BP diastolic 77–98; PULSE 56–62; RESP 14–18; TEMP 36.5; O2SAT 90–100
[2023-12-24] MEDS: Midazolam 2 MG/2 ML VIAL IVP (13:25)
[2023-12-24] MEDS: fentaNYL 100 MCG/2 ML VIAL IVP (13:25)
--- NOTE | 2023-12-24 13:56 | DI.RAD_ITS ---
Exam(s) XR PAIN CLINIC LUMBAR SP 2V EXAM: XR PAIN CLINIC LUMBAR SP 2V CLINICAL HISTORY: DX: Lumbar Spondylosis TECHNIQUE: 2D and realtime digital imaging was performed. CONTRAST MATERIAL: Refer to procedure report. COMPARISON: No exams were available for comparison FINDINGS: Fluoroscopy was provided for Dr. Spears during the performance of a bilateral lumbar radiofrequency ab lation. Please refer to the procedure report for complete details. Ka,r=26.6 mGy IMPRESSION: RADIATION DOSE DELIVERED: 0.0 0.0 0
--- NOTE | 2023-12-24 13:58 | PDOC.PAIN ---
Date of service: 12/24/23 Time of Service: 13:58 Pain Managment Procedure Note Procedure Note Procedure Note: PROCEDURE NOTE BILATERAL LUMBAR RADIOFREQUENCY ABLATION Date of Service: December 24, 2023 Patient:? Keron Busch? Provider:? Corbin Spears DO, MPH Keron Busch has been [facility] to the [facility] for Bilateral Lumbar Radiofrequency Ablation with the AvXcedexs Machine.? Pre Operative Diagnosis: Lumbosacral Spondylosis without Myelopathy ICD-10 M47.816 Post Operative Diagnosis: Same Pre procedure pain; VAS= 7/10 Comments: He had excellent relief with the LMBBs x 2. PROCEDURE: Radiofrequency Ablation of medial branches - bilateral L3, L4, L5 and lateral branches of bilateral S1. Keron?was interviewed and the medical record was reviewed.? There were no medical, pharmacologic, radiographic or other structural contraindications to attempting fluoroscopically guided BILATERAL Lumbar Radiofrequency Ablation.?Risks and expected side effects as well as potential benefit of the procedure were reviewed with Keron, and the patient's voiced concerns were addressed.? The printed consent form was signed.? Standard time-out procedure was performed. Keron was brought into the fluoroscopy suite and positioned into the prone position on the fluoroscopy table and allowed to adjust to a position of comfort. A grounding pad was placed on the left abdomen. The sterile field was prepared using chlorhexidine preparation of the skin and sterile draping. Local anesthesia superficial and deep was provided by local infiltration of 2% lidocaine. A 17g 100 mm radiofrequency introducer needle was placed to the planned anatomic targets guided with intermittent fluoroscopy with a perpendicular approach to terminally place at the junction of the superior articular process and the transverse process of the bilateral L4, L5, the base of the sacral ala on the bilateral for the L5 medial branch nerve and the area between base of the sacral ala to the S1 foramen bilaterally. The stylets were removed and radiofrequency probes with a 4mm active tip were then inserted. Needle tip position of the probes was verified in the AP, oblique, and lateral views. At each site, the medial branch nerve was stimulated at 2 Hz to a maximum 1-2 volts determined to finalize safe needle and electrode placement. The patient was awake and responsive during this portion of the procedure. Each target was anesthetized with 1-2 mL of 2 % Lidocaine for anesthesia for lesioning and then each target was lesioned at 80 degrees Celsius for 2 minutes and 30 seconds. Tissue impedances were noted to be between 250 and 500 Ohms. I then injected 1/4 cc of Depomedrol (40 mg/cc) followed by 1 cc of 0.5% at each segmental sensory nerve. There was no unusual discomfort expressed by Keron. The needles were withdrawn without difficulty and bandages placed over the needle placement sites, the patient was observed and was without hemodynamic, neurologic, or allergic reactions. Fluoroscopic images were digitally archived. POST PROCEDURE EVALUATION: IMPRESSION: 1. Summary of procedure. Medication given is documented in the MAR. 2. Follow up plan: Keron to contact [facility] as needed.?This procedure may be repeated if the patient achieves at least 50% improvement in pain/function for at least 6 months. 3. Estimated Blood Loss: <5 mls 4. Fluoroscopy time: Documented in the EMR. Follow up plans and appointments were discussed with the Keron. Post procedure instruction was given as documented in nursing documentation and having met discharge criteria, Keron was discharged from the [facility]. COMMENTS: No apparent complications. Post-procedure pain: VAS= 1/10. I personally completed the entire procedure. CORBIN SPEARS DO, MPH ABPM&R - Subspecialty board certification in Pain Medicine [facility] [facility]
[2023-12-24] MEDS: Bupivacaine 0.5% Pres-Free 10 ML VIAL IJ (14:14)
[2023-12-24] MEDS: methylPREDNISolone ACETATE 40 MG/ML VIAL IJ (14:14)
[2023-12-24] MEDS: Lidocaine 2% Multi-Dose 20 ML VIAL IJ (14:14)
[2023-12-24] MEDS: Nerve Block Tray 1 EACH MC (14:15)
== END 2023-12-24 12:21 | disposition home or self-care (01) ==
LOC: PC 12:20
PROVIDERS: PCP Internal Medicine; Visit Provider Preventive Medicine Occupational Medicine
DX: M54.50 Low back pain, unspecified (principal); M47.816 Spondylosis without myelopathy or radiculopathy, lumbar region
CPT/HCPCS: 64635; 64636; 72100; J0665; J1010; J2003; J2250; J3010

== ENCOUNTER 2024-04-14 14:41 | Outpatient (CLI) | payer MEDICARE, BC, SELFPAY ==
--- NOTE | 2024-04-14 06:00 | DI.RAD_ITS ---
Exam(s) XR PAIN CLINIC LUMBAR SP 2V EXAM: XR PAIN CLINIC LUMBAR SP 2V CLINICAL HISTORY: Dx: Lumbar Radiculopathy. TECHNIQUE: Fluoroscopy was provided for the referring physician for guidance with performing pain cl inic injection procedure. COMPARISON: No exams were available for comparison FINDINGS: Please see procedure note for details. Fluoro time: 21.9 seconds RADIATION DOSE DELIVERED: Ka,r=9.95 mGy
[2024-04-14 14:47] VITALS: BP 151/82; PULSE 72; RESP 20; TEMP 36.7; O2SAT 97
[2024-04-14 15:20] VITALS: PULSE 67; RESP 20; O2SAT 97
[2024-04-14 15:21] VITALS: BP 183/95; PULSE 66; RESP 19; O2SAT 98
[2024-04-14 15:23] VITALS: BP 175/83; PULSE 67; RESP 15; O2SAT 98
[2024-04-14 15:29] VITALS: BP 149/83; PULSE 65; RESP 15; O2SAT 96
[2024-04-14] MEDS: methylPREDNISolone ACETATE 80 MG/ML VIAL IJ (15:35)
[2024-04-14] MEDS: Omnipaque 240 MG/ML 50 ML BTL IJ (15:35)
[2024-04-14] MEDS: Epidural Tray 1 EACH MC (15:35)
--- NOTE | 2024-04-15 16:20 | PDOC.PAIN ---
Date of service: 04/14/24 Time of Service: 15:25 Pain Managment Procedure Note Procedure Note Procedure Note: PROCEDURE NOTE LUMBAR EPIDURAL STEROID INJECTION Date of Service: April 14, 2024 Patient:Keron Lerner? Provider: Corbin Spears DO, MPH Keron Busch has been referred to the [facility] for a lumbar epidural steroid injection. Pre-operative diagnosis: Lumbosacral Radiculopathy ICD-10 M54.16 Post-operative diagnosis: Same Pre-Procedure Pain: VAS= 7 /10 Comments: I previously evaluated him in the clinic. Keron was interviewed and the medical record was reviewed.? There were no medical, pharmacologic, radiographic or other structural contraindications to attempting fluoroscopically guided Lumbar epidural steroid injection.? Risks, potential side effects, indications, and potential benefits of the procedure were reviewed with Keron.? Questions and concerns were addressed.? After it was clear that Keron was fully informed about the procedure, the printed consent form was signed by the patient and myself.? Keron was placed in the prone position on the fluoroscopy table and automated blood pressure cuff and pulse oximeter applied. The skin entry point for entering/approaching the epidural space for the lumbar epidural steroid injection was marked. Following thorough chlorhexadine preparation of the skin and draping and 1% lidocaine infiltration of the skin entry point and subcutaneous tissues, an 18 gauge Touhy needle was placed and advanced under fluoroscopic guidance and with loss of resistance technique into the L5-S1 epidural space. Needle tip placement and depth were aided and confirmed by fluoroscopy. There was no paresthesia or return of blood or CSF through the needle. 1 mls of Omnipaque 240 was injected with clear epidural spread confirmed with fluoroscopy. 80 mg of Depo-Medrol was? injected. This was followed by 1 ml of preservative-free normal saline to flush the steroid out of the needle. There was no unusual discomfort expressed by Keron. The needle was withdrawn without difficulty. (49 mls of Omnipaque was wasted) Keron was observed and was without hemodynamic, neurologic, or allergic reactions.? Fluoroscopic images were digitally archived. Keron's vital signs were stable throughout the procedure and were as recorded in nursing records. Follow up plans and appointments were discussed with Keron. Post procedure instruction was given as documented in nursing records and having met discharge criteria Keron was discharged from the [facility]. COMMENTS: No apparent complications. Post-procedure pain: VAS= 1/10. Keron to contact [facility] as needed. If at least 50% improvement in pain and/or function for at least 3 months is achieved, this procedure can be repeated. I personally performed this entire procedure. CORBIN SPEARS DO, MPH ABPMR-subspecialty board certification in Pain Medicine [facility]
== END 2024-04-14 14:42 | disposition home or self-care (01) ==
LOC: PC 14:41
PROVIDERS: PCP Internal Medicine; Visit Provider Preventive Medicine Occupational Medicine
DX: M54.50 Low back pain, unspecified (principal); M54.16 Radiculopathy, lumbar region
CPT/HCPCS: 62323; 72100; J1010; Q9967

== ENCOUNTER 2024-06-17 11:30 | Outpatient (REF) | payer MEDICARE, BC, SELFPAY ==
[2024-06-17 19:47] LABS: Iron 74 ug/dL (65-175); Total Iron Binding Capacity 356 ug/dL (250-450); Transferrin Sat 21 % (20-55)
[2024-06-17 20:28] LABS: ALT 82 U/L (16-63); AST 49 U/L (15-37); Albumin 3.8 g/dL (3.4-5.0); Alkaline Phosphatase 70 U/L (46-116); Bilirubin, Direct 0.1 mg/dL (0.0-0.2); Bilirubin, Total 0.4 mg/dL (0.2-1.0); Ferritin 130 ng/mL (26-388); Total Protein 7.2 g/dL (6.4-8.2)
[2024-06-21 07:23] LABS: Alpha 1 Antitrypsin,Serum 145 mg/dL (90-200)
[2024-06-21 09:50] LABS: HBs Antibody, Quant <3.1 mIU/mL (See Note); Hepatitis B Surface Ab Negative (See Note)
[2024-06-21 11:59] LABS: HIV-1/2 Ag & Ab Screen Negative (Negative)
== END 2024-06-17 11:31 | disposition home or self-care (01) ==
LOC: NCHCN 11:30
PROVIDERS: PCP Internal Medicine; Visit Provider Internal Medicine
DX: E66.9 Obesity, unspecified (principal)
CPT/HCPCS: 80076; 86706; 87389; 82103; 82728; 83540; 83550